=== PATIENT | male | born 1990 | race African-American/Black ===

== ENCOUNTER 2021-12-10 17:07 | Emergency (ER) | payer SELFPAY ==
[~2021-12-10] VITALS: Ht 175.3 cm; Wt 106.1 kg
[2021-12-10 17:15] VITALS: BP 115/84
[2021-12-10] MEDS ORDERED: HYDROcodone-ACET 5/325MG TAB PO ONE (19:00)
[2021-12-10] MEDS ORDERED: KETOROLAC TROMETH 30 MG/ML 1ML VIAL IM ONE (19:00)
== END 2021-12-10 21:59 | disposition home or self-care (01) ==
LOC: ER 17:07
DX: B34.9 Viral infection, unspecified (principal); Z20.822 Contact with and (suspected) exposure to COVID-19
CPT/HCPCS: 36415; 87426; 96372; 99283; J1885

== ENCOUNTER 2022-02-14 11:22 | Emergency (ER) | payer SELFPAY ==
[~2022-02-14] VITALS: Ht 175.3 cm; Wt 102.0 kg
[2022-02-14 11:39] VITALS: BP 110/67
== END 2022-02-14 18:10 | disposition left against medical advice (07) ==
LOC: ER 11:22
DX: H92.01 Otalgia, right ear (principal); Z53.21 Procedure and treatment not carried out due to patient leaving prior to being seen by health care provider